=== PATIENT | female | born 2000 | race African-American/Black ===

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

== ENCOUNTER 2021-01-29 03:09 | Inpatient (IN) | payer OTHER, SELFPAY ==
[2021-01-29] VITALS (105 sets, daily range): BP systolic 103–153; BP diastolic 65–134; PULSE 64–187; RESP 16–18; TEMP 36.6–38.1; O2SAT 93–100; BMI 23.3
--- NOTE | 2021-01-29 03:48 | LDADM ---
This patient, Uziel Gonzalez, was admitted to Labor/Delivery/Recovery 107 on 01/29/21 at 03:09. Plans for labor, pain management and were discussed with patient. Patient/family oriented to hospital policies and general routines including ID bracelet, bed and alarms, visiting hours, pain management, procedures, bathroom and other care routines, personal items, smoking policy, room service/diet and guest tray routines, security routines, and visiting hours. Patient/Family are encouraged to report perceived risks to care and to ask questions if they do not understand what they are told or what they should do. See OBIX for further documentation.
[2021-01-29] MEDS: LACTATED RINGERS 1,000 ML 125 ML IV CONT ×2 (03:50→04:24)
[2021-01-29 03:58] LABS: Basophils Absolute Auto 0.1 K/mm3 (0.0-0.1); Basophils Percent Auto 0.2 % (0.2-1.2); Hematocrit 37.3 % (37.0-47.0); Hemoglobin 12.1 g/dL (12.0-15.0); Immature Granulocyte Absolute 0.14 K/mm3 (0.00-0.031); Immature Granulocyte Percent A 0.7 % (0-0.5); Lymphocytes Absolute Auto 2.63 K/mm3 (0.9-3.2); Lymphocytes Percent Auto 12.7 % (18.3-44.2); Mean Corpuscular HGB Conc 32.4 g/dl (32-36); Mean Corpuscular Hemoglobin 29.2 pg (26-34); Mean Corpuscular Volume 89.9 fl (80-100); Mean Platelet Volume 12.6 fl (7.4-10.4); Monocytes Absolute Auto 0.8 K/mm3 (0.1-0.6); Monocytes Percent Auto 3.9 % (2.6-8.5); Neutrophils Percent Auto 82.5 % (45.5-73.1); Platelet Count Result 188 k/mm3 (150-375); Red Blood Count 4.15 M/mm3 (4.2-5.4); Red Cell Distribution Width 13.5 % (11.5-14.5); White Blood Count 20.7 K/mm3 (4.5-10.0)
--- NOTE | 2021-01-29 04:31 | P.PNAN_ITS ---
Anes - Eval Pre Procedure Procedure: labor epidural Date/Time: 01/29/21 04:31 Surgeon: osmel Preop Diagnosis: pain during labor Pre Op Diagnosis: Contractions, Bleeding Patient Data Age: 20 Gender: F Height: 1.65 m Weight: 63.6 kg Last Vital Signs Temp 36.8 C 01/29/21 03:31 Pulse 79 01/29/21 04:28 Resp 18 01/29/21 03:31 BP 131/70 01/29/21 04:28 Pulse Ox 100 01/29/21 04:31 Allergies Allergy/AdvReac Type Severity Reaction Status Date / Time No Known Allergies Allergy Verified 10/21/20 02:22 Home Medications Medication Instructions Recorded Confirmed Type PNV cmb#95-ferrous fumarate-FA 1 tablet PO DAILY 01/16/21 01/16/21 History [] Laboratory Tests 01/29/21 01/29/21 03:43 03:43 WBC 20.7 K/mm3 H K/mm3 (4.5-10.0) RBC 4.15 M/mm3 L M/mm3 (4.2-5.4) Hgb 12.1 g/dL g/dL (12.0-15.0) Hct 37.3 % % (37.0-47.0) MCV 89.9 fl fl (80-100) MCH 29.2 pg pg (26-34) MCHC 32.4 g/dl g/dl (32-36) RDW 13.5 % % (11.5-14.5) Plt Count 188 k/mm3 k/mm3 (150-375) MPV 12.6 fl H fl (7.4-10.4) Immature Gran % (Auto) 0.7 % H % (0-0.5) Neut % (Auto) 82.5 % H % (45.5-73.1) Lymph % (Auto) 12.7 % L % (18.3-44.2) [place] % (Auto) 3.9 % % (2.6-8.5) Eos % (Auto) 0.0 % % (0-4.4) Baso % (Auto) 0.2 % % (0.2-1.2) Lymph # (Auto) 2.63 K/mm3 K/mm3 (0.9-3.2) [place] # (Auto) 0.8 K/mm3 H K/mm3 (0.1-0.6) Eos # (Auto) 0.0 K/mm3 K/mm3 (0-0.3) Baso # (Auto) 0.1 K/mm3 K/mm3 (0.0-0.1) Abs Immat Gran (auto) 0.14 K/mm3 H K/mm3 (0.00-0.031) Absolute Neuts (auto) 17.0 K/mm3 H K/mm3 (1.3-6.7) Absolute Nucleated RBC 0.0 K/mm3 K/mm3 (0.0-0.012) Nucleated RBC % 0.0 % % (0.0-0.2) RPR Pending Patient hx anesthesia problems: none Family hx anesthesia problems: none [facility] Social History Social History Smoking status: Never smoker Substance use: never Gender identity (if verbalized by the patient): Female Sexual Orientation (if Verbalized by the Patient): Straight or Heterosexual Spiritual care concerns: No Exam Day of Procedure 01/29/21 04:31
--- NOTE | 2021-01-29 07:03 | WPDOBADMIT ---
Obstetrics - Admit Note Admission Note: record reviewed. No pertinent additions to the history and/or any subsequent changes in the physical findings that are not consistent with the expected course of the were found. Additions to the history and/or subsequent changes in the physical findings follow. None. AROM clear, complete, IUGR, anticipate .
[2021-01-29] MEDS: OXYTOCIN 30 UNITS/NS 500 ML 30 UNITS/500 ML BAG 999 UNITS IV CONT (07:27)
--- NOTE | 2021-01-29 07:37 | P.PCNOB_ITS ---
OB - Delivery Note Procedure Delivery date: 01/29/21 Procedure: Delivery augmentation: rupture of membranes Laceration Description: None Specimen: Yes Quantitative Blood Loss (ml): 250 Anesthesia type: Epidural Disposition: floor Narrative: With adequate expulsive efforts by the mother, the baby's head was delivered OA. The baby's anterior shoulder was delivered under the pubic symphysis without difficulty. The posterior shoulder and the rest of the baby delivered without difficulty. The was placed on the mothers chest and suctioned and stimulated. The cord was clamped and cut after 30 seconds. Mother and baby both stable. [place] Baby Date of : 01/29/21 Time of : 07:23 Weeks of gestation at delivery: 37 gender: Female Weight (pounds): 5 Weight (ounces): 15 presentation: vertex Placenta delivery description: Spontaneous cord vessel description: 3 Vessels, Nuchal Cord and Delayed Cord Clamping score one minute: 8 score five minutes: 9
[2021-01-29 08:01] LABS: Rapid Plasma Reagin Non-Reactive (NonReactive)
[2021-01-29] MEDS: OXYTOCIN 30 UNITS/NS 500 ML 30 UNITS/500 ML BAG 125 UNITS IV CONT (08:11)
[2021-01-29] MEDS: BENZOCAINE 20% AER SPR (*SP) 56 GM CAN 1 SPRAY TOPICAL (10:13)
[2021-01-29] MEDS: WITCH HAZEL 40 PADS 1 PAD TOPICAL (10:13)
[2021-01-29] MEDS: ACETAMINOPHEN 325 MG TABLET 650 MG PO (11:49)
[2021-01-30 01:00] VITALS: BP 145/74; PULSE 104; RESP 16; TEMP 36.9; O2SAT 98
[2021-01-30] MEDS: IBUPROFEN 600 MG TABLET PO ×3 (01:23→16:47)
[2021-01-30 04:30] VITALS: BP 112/73; PULSE 62; RESP 16; TEMP 36.7; O2SAT 97
[2021-01-30] MEDS: ACETAMINOPHEN 325 MG TABLET 650 MG PO (05:10)
[2021-01-30 05:22] LABS: Hematocrit 29.7 % (37.0-47.0); Hemoglobin 9.9 g/dL (12.0-15.0)
--- NOTE | 2021-01-30 07:57 | PM.OBPNVD ---
OB - PN: Subj Subjective Date/time seen: 01/30/21 07:57 Patient comments: no complaints baby status: doing well OB - PN: Obj Data Labs CBC & Chem 7: 01/30/21 05:06 Labs: Laboratory Results - last 24 hr 01/29/21 01/30/21 03:43 05:06 Hgb 9.9 L Hct 29.7 L RPR Non-reactive OB - PN A/P Plan day: 1 Plan: routine care Time Spent With Patient Time: Total time spent is greater than 50% in coordination of care (as documented) at patient's floor/unit and/or counseling patient: Time with patient: less than 15 minutes Review of Systems Review of Systems: All systems reviewed & are unremarkable except as noted in HPI and below Exam Narrative: Fundus firm and vaginal flow controlled. No lower ext redness, warmth, or edema. Negative homans. Const: General: comfortable Chest: Breast/axilla inspection: normal inspection of the breasts Resp: Effort & Inspection: normal respiratory effort Cardio: Rate: regular rate GI: GI Palp: Yes Soft to palpation Psych: Appearance: grossly normal Affect: normal affect Attitude: cooperative Thought content: Yes Normal thought content present Judgement: Good judgement present (Psych)
[2021-01-30 08:20] VITALS: BP 121/67; PULSE 70; RESP 16; TEMP 36.9; O2SAT 100
[2021-01-30 10:18] VITALS: PULSE 70; RESP 16; O2SAT 100
[2021-01-30] MEDS: POLYSACCHARIDE IRON COMPLEX 150 MG CAPSULE PO ×2 (10:18→16:48)
[2021-01-30] MEDS: DOCUSATE SODIUM 100 MG CAPSULE PO (10:18)
--- NOTE | 2021-01-30 10:25 | WPDANLDPN2 ---
Anes-Prog Note L&D Date/Time: 01/30/21 10:25 Comfortable throughout: labor and delivery Neuraxial method: epidural Epidural/Spinal procedure site: clean & non-tender Neuro status: Neuro function grossly intact. Cardiovascular status: normal Respiratory status: normal Airway patency: baseline Mental status: baseline Post-Op hydration status: normal Vital Signs: Last Vital Signs Temp 36.9 C 01/30/21 08:20 Pulse 70 01/30/21 08:20 Resp 16 01/30/21 08:20 BP 121/67 01/30/21 08:20 Pulse Ox 100 01/30/21 08:20 Pain score (VAS): 0 I/O: Intake & Output 01/29/21 01/30/21 01/30/21 23:59 07:59 15:59 Intake Total 200 Balance 200 Post-procedural complaints: none Patient feedback: Patient satisfied with anesthetic care.
--- NOTE | 2021-01-30 14:21 | PC.NURSE ---
PT introductions made and plan of care discussed per post , pain management, bottle feeding, daily care activities. PT sole recipient of such instructions. PT received education and instructions this shift via one to one discussion, mom baby care guide and demonstration. PT shows no barriers to learning at this time. PT verbalized understanding of such care.
--- NOTE | 2021-01-30 15:49 | PCCCNOTE ---
Care Coordination met with pt. this morning to discuss discharge planning. Pt.'s current D/C plan is to return home with her mother and Sister. Pt. states that she is independent with ADLs and ambulation. She has no medical equipment at home. She states she has everything needed to safely bring baby home. Pt. has been informed that nursing will check her car seat prior to D/C. Pt. has a supportive family who can assist with feeding and changing. She is in process of WIC, a basket has been provided for pt. She denies any D/C needs a this time, she has no prior DCFS cases open. Pt. states she will move to [place] in March with her sister. CC will continue to follow.
[2021-01-30] MEDS: BENZOCAINE 20% AER SPR (*SP) 56 GM CAN 1 SPRAY (16:50)
[2021-01-30] MEDS: WITCH HAZEL 40 PADS 1 PAD (16:50)
[2021-01-30 19:45] VITALS: BP 122/86; PULSE 73; RESP 16; TEMP 37.1; O2SAT 99
[2021-01-31] MEDS: IBUPROFEN 600 MG TABLET PO ×2 (00:39→09:21)
--- NOTE | 2021-01-31 07:41 | PM.OBPNVD ---
OB - PN: Subj Subjective Date/time seen: 01/31/21 07:41 Patient comments: no complaints baby status: doing well [place] feeding status: exclusively bottle feeding Narrative: Mild pain, no concerns. OB - PN: Obj Data Labs CBC & Chem 7: 01/30/21 05:06 OB - PN A/P Plan day: 2 Plan: routine care and discharge home Time Spent With Patient Time: Total time spent is greater than 50% in coordination of care (as documented) at patient's floor/unit and/or counseling patient: Time with patient: less than 15 minutes Exam Narrative: NAD abdomen soft, nontender, fundus firm below the umbilicus Extremities nontender, 1+ edema
--- NOTE | 2021-01-31 07:43 | PM.OBDSVD ---
DS: Admitting Diagnosis Discharge Date 01/31/21 Admitting Diagnosis labor at term DS: Discharge Diagnosis Discharge Diagnosis (1) , delivered: Code(s): O80 - Encounter for full-term uncomplicated delivery Status: Acute OB - DS: Summary Hospital Course Hospital Course: Had a and uncomplicated pp course. OB Procedures : Ultrasound OB Procedures Intrapartum: Spontaneous Vag Delivery OB Procedures: : None Peripartum Data Delivery Method: Natural Vaginal complications: none Status at Discharge Functional status at discharge: independent ambulation Time Spent with Patient Time attestation: Total time spent providing and/or coordinating discharge services: Time spent: Less than 30 minutes Exam Narrative: NAD abdomen soft, appropriately tender Ext non tender, 1+ edema DS: Data Data Completed and Pending Pending studies at discharge: Pending at discharge 01/29/21 07:29 Surgical [PTH] Routine Discharge Plan Discharge Attending physician on discharge: Shayy Palafox Consulting providers: Keeley Cam Discharging Clinician: Shayy Palafox Anticipated Discharge Date/Time: 01/31/21 11:00 Patient Disposition: Home, Self-Care Activity: may shower and pelvic rest Diet: as tolerated Discharge Instructions: Education: Mom and Baby Guide Given to: Mother Follow-Up: Call your delivering provider's office for an appointment to be seen in: 1 Weeks Mom and baby should come to the [facility] for the follow-up appointment. Appointment Date/Time: Monday, February 01, 2021 at 9:00 a.m. What to expect at your follow-up visit: Blood Pressure Check Physical Assessment Call [phone] if you are unable to keep your appointment time. BREAST CARE: * Wear a snug supportive bra. * For engorgement discomfort: Bottle Feeding: * May apply ice packs EPISIOTOMY/PERINEAL CARE: * Until bleeding stops, use your hodan bottle after urinating * Change your pad frequently throughout the day * You may take sitz baths several times a day (fill your bathtub with warm water and soak for 20 minutes.) Do NOT bathe in the water * No tub baths until seen by your physician - You may shower ACTIVITY: * Rest as much as possible. * Do not exercise or lift anything heavier than your baby (such as laundry or other children.) * Avoid stairs or driving as much as possible. * Do not put anything into the vagina. No douching, tampons, or sexual activity until seen by physician. NOTIFY PHYSICIAN IF YOU HAVE ANY QUESTIONS OR IF ANY OF THE FOLLOWING SYMPTOMS OCCUR: * If your vaginal bleeding becomes foul smelling. * If your vaginal bleeding becomes more heavy than a period or if your bleeding changes from pink to bright red. However, you may pass an occasional walnut-sized clot once or twice for the first week . * If you experience a sharp, shooting pain in you calves. DIET: * Eat regular, well-balanced meals. * Drink plenty of fluids daily. Stand Alone Forms: General Discharge Information Follow-up/Referrals: Shayy Palafox MD [Physician] - 1 Week Discharge Medications: Continued PNV cmb#95-ferrous fumarate-FA [] 28 mg iron- 800 mcg Tablet 1 tablet PO DAILY RF: 0 Date of admission: 01/29/21 03:09 Primary Care Provider: PHYSICIAN,ACCESS SERVICES ASSISTANT Admitting Provider: Shayy Palafox Attending physician on admission: Shayy Palafox Condition: Stable
[2021-01-31 08:30] VITALS: BP 118/66; PULSE 81; RESP 18; TEMP 36.9; O2SAT 100
[2021-01-31] MEDS: POLYSACCHARIDE IRON COMPLEX 150 MG CAPSULE PO (09:20)
--- NOTE | 2021-01-31 10:55 | PC.NURSE ---
Patient viewed the discharge video Mother & Baby Care, The First Two Weeks . Patient was given the opportunity and encouraged to ask questions. Patient verbalized understanding of information shared and has been given the mother/baby guide for home reference.
== END 2021-01-31 16:41 | disposition home or self-care (01) | DRG 560 ==
LOC: ANHLDR 04:40 → ANHOB2 10:33
PROVIDERS: Admitting Provider Obstetrics & Gynecology; Visit Provider Obstetrics & Gynecology
DX: O36.5930 Maternal care for other known or suspected poor fetal growth, third trimester, not applicable or unspecified (principal); O75.2 Pyrexia during labor, not elsewhere classified; O69.81X0 Labor and delivery complicated by cord around neck, without compression, not applicable or unspecified; Z3A.37 37 weeks gestation of pregnancy; Z37.0 Single live birth
CPT/HCPCS: 36415; 85014; 85018; 85025; 86592; 86850; 86900; 86901; 88307; A9270; J2590; J2795; J7120

== ENCOUNTER 2023-02-07 18:15 | Observation (INO) | payer OTHER, SELFPAY ==
[2023-02-07] VITALS (36 sets, daily range): BP systolic 108–129; BP diastolic 55–64; PULSE 80–116; TEMP 36.7; O2SAT 97–100; BMI 20.5
--- NOTE | 2023-02-07 18:15 | OBADM ---
This patient, Uziel Gonzalez, admitted to the OB room OB Post 116 for observation. Patient/family oriented to hospital policies and general routines including ID bracelet, bed and alarms, visiting hours, pain management, procedures, bathroom and other care routines, personal items, smoking policy, room service/diet, and visiting hours. Patient/Family are encouraged to report perceived risks to care and to ask questions if they do not understand what they are told or what they should do.
--- NOTE | 2023-02-07 18:43 | PC.NURSE ---
Notified Dr. Duncan of patient arrival to OB unit. Patient bianca via TOCO monitoring, contractions palpate soft. VSS. FHT appropriate for gestational age. Patient reports hx of contractions with current at 20weeks that required medication and an overnight hospital observation. Patient reports IUGR/SGA in current and states she is being followed by MFM. Patient states contractions started yesterday and resolved after fluid hydration, patient states she had one small clot yesterday night and denies any vaginal bleeding or discharge since. Patient states contractions began again today at 1300 and she had PO hydrated and is still bianca. Orders received.
[2023-02-07 18:47] LABS: Appearance Urine Clear (Clear); Bilirubin Urine Negative (Negative); Blood Urine Negative (Negative); Color Urine Yellow (Yellow); Glucose Urine UA Negative (Negative); Ketones Urine Negative (Negative); Leukocyte Esterase Ur Negative LEU/UL (Negative); Nitrate Urine Negative (Negative); Protein Urine Negative (Negative); Specific Grav Ur 1.028 (1.001-1.035); pH Urine 6.5 (5.0-9.0)
[2023-02-07 18:50] LABS: Add Urine Microscopic? NO
[2023-02-07] MEDS: TERBUTALINE SULFATE 1 MG/ML VIAL 0.25 MG SUB-Q ×3 (18:50→19:38)
[2023-02-07] MEDS: NIFEdipine 30 MG TAB.ER.24 PO (19:10)
--- NOTE | 2023-02-07 19:10 | PC.NURSE ---
Patient contractions still present via TOCO monitoring. Contractions continue to palpate mild. Patient states that contractions have become less intense following first dose of terbutaline. Patient educated on Procardia XL and Procardia XL administered as ordered. 2nd dose of Terbutaline administered as ordered.
--- NOTE | 2023-02-07 19:38 | PC.NURSE ---
Patient states contractions are less intense following second dose of terbutaline and contractions are less frequent. 3rd dose of terbutaline administered as ordered.
--- NOTE | 2023-02-07 20:48 | PC.NURSE ---
Updated Dr. Duncan on maternal and assessments. FHT appropriate for gestational age with variable deceleration. Contractions have resolved and patient denies any pain/cramping/tightening/pressure. VSS. Discharge orders received.
--- NOTE | 2023-02-07 21:00 | PC.NURSE ---
Discharge instructions reviewed with patient. Patient educated on labor precautions and educational hand out reviewed. Patient states understanding of all discharge education and instructions. Patient instructed to lease picker procardia XL prescriptions at her pharmacy and to call the office tomorrow to schedule a follow-up appointment with Dr. Palafox.
--- NOTE | 2023-03-01 20:52 | PM.OBTRLD ---
OB - Triage/Final Diagnosis Visit Information Comments/Additional reasons for admission: I have assessed the risk for this patient, Uziel Gonzalez, and determined that she would benefit from observation care. Evaluation Laboratory results: Laboratory Tests 02/07/23 18:37 Urine Color Yellow Urine Appearance Clear Urine pH 6.5 Ur Specific [place] 1.028 Urine Protein Negative Urine Glucose (UA) Negative Urine Ketones Negative Ur Blood (Man) Negative Urine Nitrate Negative Urine Bilirubin Negative Urine Urobilinogen 1.0 Leukocyte Esterase Rfl Negative Final Diagnosis (1) False labor: Code(s): O47.9 - False labor, unspecified Status: Acute
== END 2023-02-07 21:05 | disposition home or self-care (01) ==
PROVIDERS: Admitting Provider Obstetrics & Gynecology; Visit Provider Obstetrics & Gynecology
DX: O47.03 False labor before 37 completed weeks of gestation, third trimester (principal); Z3A.28 28 weeks gestation of pregnancy
CPT/HCPCS: 81003; 96372; A9270; G0378; G0379; J3105

== ENCOUNTER 2023-03-09 01:30 | Outpatient (CLI) | payer OTHER, SELFPAY ==
[2023-03-09 02:56] VITALS: BMI 22.4
[2023-03-09 03:31] VITALS: BP 107/57; PULSE 97
[2023-03-09 03:33] VITALS: BP 107/52; PULSE 82
--- NOTE | 2023-03-09 03:36 | PC.NURSE ---
Patient came in tonight with complaints of leakin and having contractions. Patient stated she felt like her baby was coming out. 2 nurses discussed checking this patients cervix and we did she was closed and thick. Austin stated she did not know how much water she drank today so this RN got her water. Patient states that after drinking the water her contraction have spaced out and now only feel like mild cramps or rupal arrieta but has not had any in over a half hour. This RN talked to Dr. Duncan at 0318 and he verbalized discharge instructions for this patient. patient feels comfortable leaving. This patient dc at this time
== END 2023-03-09 03:40 | disposition home or self-care (01) ==
LOC: ANHOBPP 03:22 → ANHOBOP 03-10 06:40 → ANHOBPP 03-10 06:40
PROVIDERS: Visit Provider Obstetrics & Gynecology
DX: O41.8X90 Other specified disorders of amniotic fluid and membranes, unspecified trimester, not applicable or unspecified (principal)
CPT/HCPCS: 59025; 99199

== ENCOUNTER 2023-03-24 12:10 | Observation (INO) | payer OTHER, SELFPAY ==
[2023-03-24] VITALS (24 sets, daily range): BP systolic 109–122; BP diastolic 50–66; PULSE 67–101; O2SAT 97–100; BMI 22.7
[2023-03-24] MEDS: TERBUTALINE SULFATE 1 MG/ML VIAL 0.25 MG SUB-Q (12:28)
[2023-03-24 12:34] LABS: Appearance Urine Cloudy (Clear); Bacteria Urine 1+ /hpf; Bilirubin Urine Negative (Negative); Blood Urine Negative (Negative); Color Urine Yellow (Yellow); Glucose Urine UA Negative (Negative); Ketones Urine Trace mg/dL (Negative); Leukocyte Esterase Ur 1+ LEU/UL (Negative); Need Manual Microscopic Reviewed; Nitrate Urine Negative (Negative); Non Pathogenic Casts 0-2; Protein Urine Trace mg/dL (Negative); RBC Urine 0-2 /hpf (0-2); Specific Grav Ur 1.025 (1.001-1.035); Squamous Epithelial Cell Urine Moderate /hpf (Few); WBC Urine 0-5 /hpf
[2023-03-24 12:35] LABS: Add Urine Microscopic? YES
[2023-03-24] MEDS: LACTATED RINGERS 1,000 ML 125 ML IV CONT (12:36)
--- NOTE | 2023-03-24 12:49 | LDADM ---
This patient, Uziel Gonzalez, was admitted to OB Post 117 on 03/24/23 at 11:38. Plans for labor, pain management and were discussed with patient. Patient/family oriented to hospital policies and general routines including ID bracelet, bed and alarms, visiting hours, pain management, procedures, bathroom and other care routines, personal items, smoking policy, room service/diet and guest tray routines, infant security routines, and visiting hours. Patient/Family are encouraged to report perceived risks to care and to ask questions if they do not understand what they are told or what they should do. See OBIX for further documentation.
[2023-03-24 13:34] LABS: Fetal Fibronectin Negative
--- NOTE | 2023-03-24 14:00 | PC.NURSE ---
Called CNM. Notified that contractions have stopped since terbutaline dose and liter of LR. Patient did have 3 contractions between [id number] that she rated a 6/10 on the pain scale, but patient states that is an improvement since when she first arrived. CNM notified of FFN results as well as urinalysis results and cervical exam. Verbal orders given for betamethasone injections and discharge with pelvic rest precautions.
[2023-03-24] MEDS: BETAMETHASONE SOD PHOS/ACETATE 30 MG/5 ML VIAL 12 MG IM (14:29)
--- NOTE | 2023-03-24 14:44 | PC.NURSE ---
Patient has received discharge instructions and is waiting on her med taxi to pick her up.
--- NOTE | 2023-03-24 15:13 | PC.NURSE ---
1150- This RN called elizabeth johnson cnm and notified her of pts arrival to unit as well as complaints of contractions. received orders to perform SVE, FFN, bolus fluid, terbutaline as well as UA.
--- NOTE | 2023-03-25 19:05 | PM.OBTRLD ---
OB - Triage/Final Diagnosis Visit Information Date of evaluation: 03/24/23 Reason for evaluation: threatened labor Comments/Additional reasons for admission: I have assessed the risk for this patient, Uziel Gonzalez, and determined that she would benefit from observation care. Evaluation Laboratory results: Laboratory Tests 03/24/23 03/24/23 12:13 12:41 Urine Color Yellow Urine Appearance Cloudy H Urine pH 7.0 Ur Specific [place] 1.025 Urine Protein Trace Urine Glucose (UA) Negative Urine Ketones Trace H Ur Blood (Man) Negative Urine Nitrate Negative Urine Bilirubin Negative Urine Urobilinogen 1.0 Add Ur Microanalysis Reviewed Leukocyte Esterase Rfl 1+ H Urine RBC 0-2 Urine WBC 0-5 Ur Squamous Epith Cells Moderate Urine Bacteria 1+ H Urine Casts 0-2 Fibronectin Negative
== END 2023-03-24 15:12 | disposition home or self-care (01) ==
PROVIDERS: Advanced Practice Midwife; Admitting Provider Obstetrics & Gynecology; Visit Provider Obstetrics & Gynecology
DX: O47.03 False labor before 37 completed weeks of gestation, third trimester (principal); Z3A.33 33 weeks gestation of pregnancy
CPT/HCPCS: 81001; 82731; 96360; 96361; 96372; G0378; G0379; J0702; J3105; J7120

== ENCOUNTER 2023-03-25 16:50 | Observation (INO) | payer OTHER, SELFPAY ==
[2023-03-25] VITALS (95 sets, daily range): BP systolic 106–132; BP diastolic 47–75; PULSE 80–136; RESP 16–18; TEMP 36.6–36.8; O2SAT 87–100; BMI 22.0
--- NOTE | 2023-03-25 17:40 | PC.NURSE ---
Dr. Duncan informed of this 33 wk gestation pt here for 2nd dose of Celestone and c/o contractions. Pt was here yesterday and received Brethine, already on Procardia 30 XL for contractions that she had this am at 0900, SVE yesterday was closed but lower in pelvis, FFN negative, and 1st dose Celestone given. This baby is in the 16th percentile for growth and being monitored for elevated umbilical dopplers. FHT's reactive, but possible variable decel, bianca every 2 mins- the one I palpated was mild. Orders received.
--- NOTE | 2023-03-25 18:00 | OBADM ---
This patient, Uziel Gonzalez, admitted to the OB room 115 for observation. Patient/family oriented to hospital policies and general routines including ID bracelet, bed and alarms, visiting hours, pain management, procedures, bathroom and other care routines, personal items, smoking policy, room service/diet, and visiting hours. Patient/Family are encouraged to report perceived risks to care and to ask questions if they do not understand what they are told or what they should do.
[2023-03-25] MEDS: TERBUTALINE SULFATE 1 MG/ML VIAL 0.25 MG SUB-Q ×3 (18:08→21:45)
[2023-03-25] MEDS: BETAMETHASONE SOD PHOS/ACETATE 30 MG/5 ML VIAL 12 MG IM (18:15)
--- NOTE | 2023-03-25 18:21 | OBADM ---
This patient, Uziel Gonzalez, admitted to the OB room OB Post 115 for observation. Patient/family oriented to hospital policies and general routines including ID bracelet, bed and alarms, visiting hours, pain management, procedures, bathroom and other care routines, personal items, smoking policy, room service/diet, and visiting hours. Patient/Family are encouraged to report perceived risks to care and to ask questions if they do not understand what they are told or what they should do.
--- NOTE | 2023-03-25 18:29 | PC.NURSE ---
SVE 0.5/thick/high
[2023-03-25] MEDS: NIFEdipine 30 MG TAB.ER.24 PO (18:41)
--- NOTE | 2023-03-25 19:14 | PM.IMHP ---
H&P: HPI History of Present Illness Date/Time: 03/25/23 19:14 Chief Complaint: contractions Narrative: 22-year-old mal tip at 34 who presented with contractions. She was having regular painful contractions. She denies any loss of fluid or vaginal bleeding. She denies any chest pain shortness of breath. She was here for steroid shot for contractions. Put on the monitor and found to be bianca regularly. She was checked. Her cervix is not changed. She is being treated with 30 of Procardia currently, additional 30 of Procardia XL has been added. We gave her a shot of terbutaline but her pulse became too high to repeat the series. We will continue to observe until contractions were of sufficiently space down Review of Systems Review of Systems: All systems reviewed & are unremarkable except as noted in HPI and below Constitutional: Constitutional: Denies chills, Denies fatigue, Denies fever(s) and Denies weakness Eyes: Eyes: Denies blurry vision, Denies change in vision, Denies loss of peripheral vision, Denies loss of vision, Denies other visual disturbances and Denies eye pain ENT: Denies vertigo, Denies dizziness, Denies hearing loss, Denies mouth pain, Denies nasal obstruction, Denies neck mass and Denies neck pain Cardiovascular: Cardiovascular: Denies chest pain, Denies diaphoresis, Denies syncope, Denies leg edema and Denies dyspnea Respiratory: Respiratory: Denies chest congestion, Denies cough, Denies hemoptysis, Denies dyspnea and Denies wheezing Gastrointestinal: Gastrointestinal: Denies abdominal pain, Denies constipation, Denies diarrhea, Denies nausea and Denies vomiting Genitourinary: Genitourinary: Denies hematuria, Denies change in libido, Denies nocturia, Denies genital lesions, Denies flank pain and Denies urinary urgency Musculoskeletal: Musculoskeletal: Denies abnormal gait, Denies back pain, Denies myalgias, Denies arthralgias, Denies joint swelling, Denies muscle weakness and Denies neck pain Integumentary/Breasts: Skin/Breast: Denies swelling, Denies breast pain, Denies breast mass, Denies dry skin, Denies nipple discharge, Denies unusual bruising and Denies jaundice Neurologic: Denies Neuro-related abnormal movements, Denies Abnormal speech present, Denies abnormal gait, Denies behavioral changes, Denies confusion, Denies vertigo, Denies dizziness, Denies syncope, Denies loss of vision, Denies memory loss, Denies convulsions and Denies weakness Psychiatric: Psychiatric: Denies abnormal sleep pattern, Denies behavioral changes, Denies change in libido, Denies confusion, Denies depression, Denies anhedonia and Denies memory loss Endocrine: Endocrine: Reports no additional endocrine complaints, Denies change in libido and Denies fatigue Hematologic/Lymphatic: Hematologic/Lymphatic: Reports no additional hematologic/lymphatic complaints Allergic/Immunologic: Allergic/Immunologic: Reports no additional allergic/immunologic complaints and Denies wheezing [facility] Social History Social History (System 01/22/22 @ 09:32 by Karle Ferguson) Smoking status: Never smoker Substance use: never Gender identity (if verbalized by the patient): Female Sexual Orientation (if Verbalized by the Patient): Straight or Heterosexual Spiritual care concerns: No Meds Home Medications and Allergies Home Medications Medication Instructions Recorded Confirmed Type vit no.95-ferrous 1 tablet PO DAILY 01/16/21 03/25/23 History fumarate 28 mg-folic acid 800 mcg tablet () nifedipine 30 mg tablet,extended 30 mg PO DAILY 30 days #30 tabs 02/07/23 03/25/23 Rx release 24 hr (Procardia XL) Allergies Allergy/AdvReac Type Severity Reaction Status Date / Time latex Allergy Hives Verified 03/24/23 12:47 Vital Signs Vital Signs - 24 hr 03/25/23 17:17 03/25/23 17:22 03/25/23 17:23 Temperature Pulse Rate Respiratory Rate Blood Pressure Pulse Oximetry 99 100 1
[2023-03-25] MEDS: LACTATED RINGERS 1,000 ML 75 ML IV CONT (21:27)
[2023-03-25] MEDS: MAGNESIUM SULF 6 GM/WATER150ML 6 GM/150 ML BAG IVPB (21:27)
[2023-03-25] MEDS: fentaNYL CITRATE INJ (*CRX) 100 MCG/2 ML VIAL 50 MCG IV PUSH (21:28)
[2023-03-25] MEDS: ONDANSETRON INJ 4 MG/2 ML VIAL IV PUSH (21:56)
[2023-03-25] MEDS: MAGNESIUM SULF 20GM/WATER500ML 500 ML 50 MG IV CONT (21:57)
--- NOTE | 2023-03-25 22:03 | PC.NURSE ---
2127: discussed plan of care with patient, educated patient on magnesium, pt states that due to transportation issues and desire to breastfeed she would like to be transferred if delivery is likely to occur
--- NOTE | 2023-03-25 22:14 | PC.NURSE ---
2138: Dr. Duncan called in for update, notified him of pt status and request to be transferred if delivery cannot be stopped. Antibiotics suggested for unknown GBS no new orders at this time other than to give third dose of terbutaline. Instructed to watch pt and do SVE if pt complains of increasing pain or an increase in vaginal pressure
[2023-03-26] VITALS (119 sets, daily range): BP systolic 94–114; BP diastolic 38–65; PULSE 89–120; RESP 14–18; TEMP 36.6–36.7; O2SAT 94–100
--- NOTE | 2023-03-26 02:51 | PC.NURSE ---
pt called out complaining of pressure, states her contractions are now a 7/10 on the pain scale. SVE 1.5/25/-4 and can feel bag of water.
[2023-03-26] MEDS: ACETAMINOPHEN 500 MG TABLET 1000 MG PO (03:53)
--- NOTE | 2023-03-26 04:05 | PC.NURSE ---
pt states pressure has gone away and the pain feels more like pinched nerve pain in her lower abdomen that comes and goes with position changes. states she has a headache but that the contraction pain has decreased.
[2023-03-26] MEDS: MAGNESIUM SULF 20GM/WATER500ML 500 ML 50 MG IV CONT (05:16)
--- NOTE | 2023-03-26 05:20 | PC.NURSE ---
pt states headache is gone, states contractions have went away for the majority. pt was able to sleep for a while.
--- NOTE | 2023-03-26 08:01 | PM.TDS ---
Transfer Discharge Sum: Prov Provider Date of admission: 03/25/23 16:50 Primary care physician: [facility]IC [facility]ER PHYSICIAN Admitting clinician: Caleb Green MD Attending physician on discharge: Caleb Green DS: Admitting Diagnosis Discharge Date 03/26/23 Admitting Diagnosis labor DS: Discharge Diagnosis Discharge Diagnosis Plan SVE closed > 1.5/50/-3; s/p terb x3, procardia x2, 6mg MgSO4 bolus, patient is still bianca q4-7min. NST reactive Transfer Discharge Sum: Med Medications Active and Home Medications: Home Medications vit no.95-ferrous fumarate 28 mg-folic acid 800 mcg tablet () 1 tablet PO DAILY 01/16/21 [History Confirmed 03/25/23] nifedipine 30 mg tablet,extended release 24 hr (Procardia XL) 30 mg PO DAILY 30 days #30 tabs 02/07/23 [Rx Confirmed 03/25/23] Active Medications Magnesium Sulfate (Magnesium Sulf 20gm/[id number]) 500 mls @ 50 mls/hr IV CONT .Q10H [facility] Last Admin: 03/26/23 05:16 Dose: 50 mls/hr Lactated Ringer's (Lr - Lactated Ringers Iv) 1,000 mls @ 75 mls/hr IV CONT .[id number] [facility] Last Admin: 03/25/23 21:27 Dose: 75 mls/hr Transfer Discharge Sum: Hosp Hospital Course Hospital course: Uziel Gonzalez is a 22 year old female who presented with contractions, and made cervical change from closed to 1.5/50/-3 after terb x3, procardia x2, and 6g mag bolus. Given continued cervical change, will transfer to [facility]. Discussed with Dr. Mesa, who accepts transfer. Time Spent with Patient Time attestation: Total time spent providing and/or coordinating transfer services: Exam Const: General: no acute distress Eyes: General: appearance normal, both eyes and all related structures Neck: Neck: supple Resp: Effort & Inspection: normal respiratory effort Cardio: Rate: regular rate Rhythm: regular rhythm Neuro: General: gait normal Speech: normal speech Motor exam (neuro): 5/5 motor strength present throughout Extrem: General: normal to inspection Psych: Mental Status: mental status grossly normal
--- NOTE | 2023-03-26 08:32 | PC.NURSE ---
0800: Dr. Green on the unit and is in the process of transferring patient to [facility] 0810: Patient informed on transfer to [facility], patient is accepting transfer. 0820: RN gave to report to transport aircrewman Alayna from [facility].
== END 2023-03-26 09:15 | disposition short-term general hospital (02) ==
PROVIDERS: Admitting Provider Obstetrics & Gynecology; Visit Provider Obstetrics & Gynecology
DX: O47.03 False labor before 37 completed weeks of gestation, third trimester (principal); Z3A.33 33 weeks gestation of pregnancy; Z79.899 Other long term (current) drug therapy
CPT/HCPCS: 96372; 96374; 96375; A9270; G0378; G0379; J0702; J2405; J3010; J3105; J3475; J7120

== ENCOUNTER 2023-04-02 06:03 | Inpatient (IN) | payer OTHER, SELFPAY ==
[2023-04-02] VITALS (93 sets, daily range): BP systolic 96–149; BP diastolic 35–106; PULSE 72–249; RESP 16; TEMP 36.5–36.9; O2SAT 84–100; BMI 22.4
[2023-04-02 07:50] LABS: Basophils Percent Auto 0.2 % (0.2-1.2); Eosinophils Absolute Auto 0.1 K/mm3 (0-0.3); Eosinophils Percent Auto 0.5 % (0-4.4); Hematocrit 32.2 % (37.0-47.0); Immature Granulocyte Absolute 0.17 K/mm3 (0.00-0.031); Immature Granulocyte Percent A 1.3 % (0-0.5); Lymphocytes Absolute Auto 3.36 K/mm3 (0.9-3.2); Lymphocytes Percent Auto 26.3 % (18.3-44.2); Mean Corpuscular HGB Conc 31.1 g/dl (32-36); Mean Corpuscular Hemoglobin 28.1 pg (26-34); Mean Corpuscular Volume 90.4 fl (80-100); Mean Platelet Volume 10.8 fl (7.4-10.4); Monocytes Percent Auto 7.5 % (2.6-8.5); Neutrophils Absolute Auto 8.2 K/mm3 (1.3-6.7); Neutrophils Percent Auto 64.2 % (45.5-73.1); Platelet Count Result 228 k/mm3 (150-375); Red Blood Count 3.56 M/mm3 (4.2-5.4); Red Cell Distribution Width 14.4 % (11.5-14.5); White Blood Count 12.8 K/mm3 (4.5-10.0)
[2023-04-02] MEDS: AMPICILLIN 2 GM/NS 100 ML 2 GM/100 ML BAG IVPB (07:58)
[2023-04-02] MEDS: OXYTOCIN 30 UNITS/NS 500 ML 30 UNITS/500 ML BAG IV CONT (07:58)
[2023-04-02] MEDS: LACTATED RINGERS 1,000 ML 125 ML IV CONT (07:58)
--- NOTE | 2023-04-02 09:07 | PC.NURSE ---
Patient in antepartum room for rule out ROM. Upon initial assessment, patient was found to be grossly ruptured with clear fluid noted. tracing from [id number]; baseline-130 with accelerations.
[2023-04-02] MEDS: fentaNYL CITRATE INJ (*CRX) 100 MCG/2 ML VIAL 50 MCG IV PUSH (12:52)
[2023-04-02] MEDS: AMPICILLIN 1 GM/NS 50 ML 1 GM/50 ML BAG IVPB (12:53)
--- NOTE | 2023-04-02 13:55 | WPDANESEPPF ---
Anes - Initial Pre Proc Eval Date/Time: 04/02/23 13:55 Surgeon: Caleb Green MD Pre Op Diagnosis: Leaking Patient Data Age: 22 Gender: F Height: 1.65 m Weight: 61 kg Last Vital Signs Temp 36.7 C 04/02/23 12:00 Pulse 102 H 04/02/23 13:54 BP 96/62 L 04/02/23 13:54 Pulse Ox 100 04/02/23 13:50 O2 Del Method Room Air 04/02/23 07:48 Allergies Allergy/AdvReac Type Severity Reaction Status Date / Time latex Allergy Hives Verified 04/02/23 08:18 Home Medications Medication Instructions Recorded Confirmed Type vit no.95-ferrous 1 tablet PO DAILY 01/16/21 04/02/23 History fumarate 28 mg-folic acid 800 mcg tablet () nifedipine 30 mg tablet,extended 30 mg PO DAILY 30 days #30 tabs 02/07/23 04/02/23 Rx release 24 hr (Procardia XL) Iron (ferrous sulfate) 1 tab-cap PO DAILY 04/02/23 04/02/23 History Laboratory Tests 04/02/23 04/02/23 07:45 13:05 WBC 12.8 H K/mm3 (4.5-10.0) RBC 3.56 L M/mm3 (4.2-5.4) Hgb 10.0 L g/dL (12.0-15.0) Hct 32.2 L % (37.0-47.0) MCV 90.4 fl (80-100) MCH 28.1 pg (26-34) MCHC 31.1 L g/dl (32-36) RDW 14.4 % (11.5-14.5) Plt Count 228 k/mm3 (150-375) MPV 10.8 H fl (7.4-10.4) Immature Gran % (Auto) 1.3 H % (0-0.5) Neut % (Auto) 64.2 % (45.5-73.1) Lymph % (Auto) 26.3 % (18.3-44.2) [place] % (Auto) 7.5 % (2.6-8.5) Eos % (Auto) 0.5 % (0-4.4) Baso % (Auto) 0.2 % (0.2-1.2) Lymph # (Auto) 3.36 H K/mm3 (0.9-3.2) [place] # (Auto) 1.0 H K/mm3 (0.1-0.6) Eos # (Auto) 0.1 K/mm3 (0-0.3) Baso # (Auto) 0.0 K/mm3 (0.0-0.1) Abs Immat Gran (auto) 0.17 H K/mm3 (0.00-0.031) Absolute Neuts (auto) 8.2 H K/mm3 (1.3-6.7) Absolute Nucleated RBC 0.0 K/mm3 (0.0-0.012) Nucleated RBC % 0.0 % (0.0-0.2) RPR Pending Hep Bs Antigen Pending Rubella IgG Antibody Pending Blood Type O Positive Antibody Screen Negative Patient hx anesthesia problems: none Family hx anesthesia problems: none Results Review: All pre-operative results and documents have been reviewed as part of the pre-operative evaluation. [facility] Social History Social History Smoking status: Never smoker Second hand tobacco smoke exposure: Yes Substance use: never Lack of Transportation: No Lack of Food: Never True Current Housing: I Have Housing Concerned About Future Housing: No Difficulty Paying Gas/Electric Bills: No Difficulty Paying for Meds: No Currently Unemployed: No Education: High School Diploma/GED Difficulty w/ Childcare or Family Care: YES Gender identity (if verbalized by the patient): Female Sexual Orientation (if Verbalized by the Patient): Straight or Heterosexual Spiritual care concerns: No Anes - Eval Final PreProcedure Day of Procedure 04/02/23 13:55 Patient weight: normal Heart: regular rate and rhythm Lungs: clear to auscultation Neurological: alert and oriented ASA classification: III Emergent: no Anesthetic plan: proceed Anesthesia type and monitoring: regional epidural and standard monitoring Results Review: All pre-operative results and documents have been reviewed as part of the pre-operative evaluation. Informed Consent: The patient's anesthetic plan and its attendant risks and benefits were discussed with the patient/family/POA. Questions were solicited and answers provided to the satisfaction of the patient/family/POA.
[2023-04-02 14:20] LABS: Hepatitis B Surface Antigen Negative (Negative); Rubella IgG Antibody 20.7 IU/ML
[2023-04-02] MEDS: SODIUM CHLORIDE 0.9% IV 300 ML 600 ML I-UTERINE (14:29)
[2023-04-02 15:29] LABS: Rapid Plasma Reagin Non-Reactive (NonReactive)
[2023-04-02] MEDS: OXYTOCIN 30 UNITS/NS 500 ML 30 UNITS/500 ML BAG 125 UNITS IV CONT (16:27)
[2023-04-02] MEDS: IBUPROFEN 600 MG TABLET PO (18:54)
--- NOTE | 2023-04-02 19:08 | OBPPTRN ---
Patient transferred to post room #292 via wheelchair. Oriented to unit, room, information board, rooming in, admission packet and security measures. Patient verbalizes understanding.
--- NOTE | 2023-04-02 21:36 | WPDOBADMIT ---
Obstetrics - Admit Note Admission Note: Patient presents after PPROM at 0345 at 34.3 weeks. Denies fevers, chills, vaginal bleeding or strong contractions. Will start pitocin augmentation. record reviewed. No pertinent additions to the history and/or any subsequent changes in the physical findings that are not consistent with the expected course of the were found. Additions to the history and/or subsequent changes in the physical findings follow. None. Late entry. Patient seen at 0800 on 04/02.
--- NOTE | 2023-04-02 21:37 | PM.OBPRVD ---
OB - Vaginal Delivery Note Procedure Delivery date: 04/02/23 Baby Date of : 04/02/23 Weeks of gestation at delivery: 34 Infant gender: Female Weight (pounds): 4 Weight (ounces): 12 presentation: vertex position: Left Occiput Anterior Placenta delivery description: Spontaneous and Normal Configuration Cord Vessel Description: 3 Vessels, Loose and Around Body Narrative: See H&P and notes for details on patient's admission and labor. She progressed to complete cervical dilation and at the appropriate time began pushing. With adequate expulsive efforts by the mother, the baby's head was delivered without difficulty. Nuchal cord was present x1 and delivered through. The baby's left shoulder was anterior and delivered under the pubic symphysis without difficulty. The posterior shoulder and the rest of the baby delivered without difficulty. The umbilical cord was doubly clamped and cut after 60 seconds of delayed cord clamping. Care of the infant was then assumed by the nursing staff. Mother and are at this time in stable condition and doing well.
[2023-04-03 00:15] VITALS: BP 98/50; PULSE 102; RESP 18; TEMP 36.9; O2SAT 97
[2023-04-03 03:50] VITALS: BP 110/59; PULSE 82; RESP 18; TEMP 36.8; O2SAT 99
[2023-04-03 05:28] LABS: Hematocrit 33.5 % (37.0-47.0); Hemoglobin 10.4 g/dL (12.0-15.0)
[2023-04-03 08:00] VITALS: BP 120/72; PULSE 80; RESP 14; TEMP 36.6
[2023-04-03] MEDS: IBUPROFEN 600 MG TABLET PO ×2 (08:15)
[2023-04-03] MEDS: MULTIVIT/MIN/PREN/FOL AC/IRON TABLET 1 TAB PO (08:15)
[2023-04-03] MEDS: DOCUSATE SODIUM 100 MG CAPSULE PO (08:15)
[2023-04-03] MEDS: WITCH HAZEL 40 PADS 1 PAD TOPICAL (08:15)
--- NOTE | 2023-04-03 11:13 | PM.OBPNVD ---
OB - PN: Subj Subjective Date/time seen: 04/03/23 11:13 Patient comments: no complaints, pain well controlled, incisional pain, tolerating diet and flatus present OB - PN: Obj Data Labs 04/03/23 03:14 Labs: Laboratory Results - last 24 hr 04/02/23 04/02/23 04/03/23 07:45 13:05 03:14 Hgb 10.4 L Hct 33.5 L RPR Non-reactive Hep Bs Antigen Negative Rubella IgG Antibody 20.7 OB - PN A/P Plan day: 1 Plan: routine care Comments: No problems, routine care Time Spent With Patient Time: Total time spent is greater than 50% in coordination of care (as documented) at patient's floor/unit and/or counseling patient: Exam Const: General: comfortable, no acute distress and alert Resp: Effort & Inspection: normal respiratory effort Auscultation: no crackles, no rales and no rhonchi Cardio: Rate: regular rate Heart sounds: no click, no murmurs and no rubs GI: Inspection: non-distended GI Palp: No Tenderness to palpation present (GI) Auscultation: normal bowel sounds Other: Incision - CDI Extrem: General: normal to inspection, no pedal edema and no calf tenderness
[2023-04-03 12:17] VITALS: BP 113/77; PULSE 77; RESP 16; TEMP 36.4; O2SAT 100
--- NOTE | 2023-04-03 12:46 | WPDANLDPN2 ---
Anes-Prog Note L&D Date/Time: 04/03/23 12:46 Comfortable throughout: labor and delivery Neuraxial method: epidural Epidural/Spinal procedure site: clean & non-tender Neuro status: Neuro function grossly intact. Cardiovascular status: normal Respiratory status: normal Airway patency: baseline Mental status: baseline Post-Op hydration status: normal Vital Signs: Last Vital Signs Temp 36.4 C 04/03/23 12:17 Pulse 77 04/03/23 12:17 Resp 16 04/03/23 12:17 BP 113/77 04/03/23 12:17 Pulse Ox 100 04/03/23 12:17 O2 Del Method Room Air 04/02/23 07:48 Pain score (VAS): 07/31 I/O: Intake & Output 04/02/23 04/03/23 04/03/23 23:59 07:59 15:59 Intake Total 1000 250 Output Total 50 Balance 950 250 Post-procedural complaints: none Patient feedback: Patient satisfied with anesthetic care.
[2023-04-03 20:00] VITALS: BP 98/63; PULSE 74; RESP 16; TEMP 36.8; O2SAT 99
--- NOTE | 2023-04-04 07:31 | PM.OBDSVD ---
DS: Admitting Diagnosis Discharge Date April 04, 2023 Admitting Diagnosis term DS: Discharge Diagnosis Discharge Diagnosis (1) , delivered: Code(s): O80 - Encounter for full-term uncomplicated delivery Status: Acute OB - DS: Summary OB Procedures : None OB Procedures Intrapartum: Spontaneous Vag Delivery OB Procedures: : None Time Spent with Patient Time attestation: Total time spent providing and/or coordinating discharge services: Discharge Plan Discharge Discharging Clinician: Judith Duncan Patient Disposition: Home, Self-Care Activity: pelvic rest Diet: regular Patient Instructions: Antibiotic Form Stand Alone Forms: General Discharge Information Follow-up/Referrals: Judith Duncan MD [Physician] - Discharge Medications: Continued PNV cmb#95-ferrous fumarate-FA [] 28 mg iron- 800 mcg Tablet 1 tablet PO DAILY Iron (ferrous sulfate) 1 tab-cap PO DAILY Discontinued nifedipine [Procardia XL] 30 mg Tablet Extended Release 24hr 30 mg PO DAILY 30 Days Qty: 30 0RF Date of admission: 04/02/23 06:03 Primary Care Provider: PHYSICIAN,NURSING UNIT MANAGER Admitting Provider: Caleb Green Attending physician on admission: Caleb Green Condition: Stable
--- NOTE | 2023-04-04 07:33 | PM.OBPNVD ---
OB - PN: Subj Subjective Date/time seen: 04/04/23 07:33 Patient comments: no complaints, pain well controlled and tolerating diet OB - PN: Obj Data Labs 04/03/23 03:14 OB - PN A/P Plan day: 2 Plan: routine care and discharge home Time Spent With Patient Time: Total time spent is greater than 50% in coordination of care (as documented) at patient's floor/unit and/or counseling patient: Exam Const: General: comfortable and no acute distress Resp: Effort & Inspection: normal respiratory effort Auscultation: no rales, no rhonchi and no wheezes Cardio: Rate: regular rate Heart sounds: no click, no murmurs and no rubs GI: GI Palp: Yes Soft to palpation and No Tenderness to palpation present (GI) Auscultation: normal bowel sounds Extrem: General: normal to inspection, no pedal edema and no calf tenderness
[2023-04-04 10:00] VITALS: BP 111/69; PULSE 80; RESP 14; TEMP 36.8
[2023-04-04] MEDS: TETANUS,DIPHTHERIA,AC PERTUSSIS ADULT (0.5 ML) BOOSTRIX IM (17:16)
[2023-04-05 11:27] VITALS: BP 89/55; PULSE 84; RESP 20; TEMP 36.9
--- NOTE | 2023-04-06 08:13 | PC.NURSE ---
Late entry from 04/05/2023 at [phone] Introductions were made, then consulted with patient to assess needs related to . Mother led the conversation with her?plans to feed?her infant, the?experience so far along with questions and concerns. Resources provided for inpatient and outpatient services with the feeding sheet, mom/baby guide and name written on the white board. Encouraged understanding of the benefits of skin to skin (demonstrating unwrapping infant and placing upright on her chest), stimulating with massage touch, changing positions to encourage wakefulness, how to watch for early feeding cues, responsive feeding, feeding on demand (aiming for 8-12 times in 24 hours, about every 2-3 hours), milk production, hand expression (mother demonstrated learning) building/maintaining a milk supply, duration of feeding, signs of adequate intake/output, paced bottle feeding and how to record on the feeding sheet. Mother voiced understanding of the information and will call for the next feeding. Late entry from 04/05/2023 at [phone] L&D RN reported mother is pumping and request syringes to feed her . RN arrived in the room and mother had pumped a total of 14mls to relieve engorgement. Mother states her plan is to pump, then latch her . RN encouraged stopping the pumping since it has been 5 minutes, then demonstrated to mother waking infant up and placing [id number] in a manner to keep infant warm. readily demonstrated feeding cues. We reviewed positioning and ear, shoulder, hip alignment, supporting the breast to facilitate a deep latch, asymmetrical latch (off-center), leading with the chin with a big, open, wide gape and body close to mother. latched optimally to the right, then the left breast in football position. Education given to mother of how to visualize suck/swallow ratios and listen for drinking at the breast. Mother states she has breastfed earlier and her breast remained full. We reviewed the difference between non-nutritive and nutritive sucking. Infant was able to maintain latch without discomfort to mother and demonstrated swallowing when latched effectively. Nipple care reviewed with optimal latch and good positioning. Reviewed practicing infant to gain strength with . Reminding mother of comfort measures of healing, relief of engorgement with a warm, wet washcloth, pumping to relief and not empty, to rinse breast, then leave open to air-dry. Reviewed good handwashing when or touching the breast/nipples to prevent infection. Resources used to facilitate learning were used with the visual handouts, tool, mom and baby guide. Mother voiced understanding of skin to skin, stimulating with massage touch, responsive feedings, hand expressed colostrum, talking to infant to encourage if it has been 2 -2.5 hours since the start of the last , to call if does not latch, or if there is discomfort with . Mother voiced understanding of information and will call if there is a request for assistance. Reported to the Primary RN. Discussed with Primary RN the amount of breast milk mother is able to pump and suggested fortifier instead of formula as an option when the volume increases as mother doesn't want to feed formula if she doesn't have to. Jennifer will call the social media sr strategy manager for an order since there is an order for extra calorie formula at this time.
== END 2023-04-04 17:40 | disposition home or self-care (01) | DRG 560 ==
LOC: ANHOB2 04-04 16:50 → ANHLDR 04-06 08:06 → ANHOB2 04-06 08:06
PROVIDERS: Admitting Provider Obstetrics & Gynecology; Visit Provider Obstetrics & Gynecology
DX: O42.913 Preterm premature rupture of membranes, unspecified as to length of time between rupture and onset of labor, third trimester (principal); Z37.0 Single live birth; O69.2XX0 Labor and delivery complicated by other cord entanglement, with compression, not applicable or unspecified; O69.81X0 Labor and delivery complicated by cord around neck, without compression, not applicable or unspecified; Z3A.34 34 weeks gestation of pregnancy; Z23 Encounter for immunization
CPT/HCPCS: 36415; 85014; 85018; 85025; 86592; 86762; 86850; 86900; 86901; 87340; 88307; 90471; 90686; 90715; A9270; G0008; J0290; J2590; J2795; J3010; J7030; J7120